=== PATIENT | male | born 1965 | race Caucasian/White ===

== ENCOUNTER 2017-09-07 16:46 | Outpatient (CLI) ==
--- NOTE | 2017-09-08 07:31 | DI ---
EXAM: Two views of the right hip. History: Right hip pain. Findings: No acute fracture or dislocation. No abnormal calcifications or radiopaque foreign bodies . Mild narrowing of the right hip joint with small osteophytes. Impression: 1. No acute osseous abnormality. 2. Mild arthritis of the right hip joint
--- NOTE | 2017-09-08 07:37 | DI ---
EXAM: Five views of the lumbar spine. History: Lower back pain. Findings: No acute fracture or subluxation of the lumbar spine. Mild multilevel degenerative disc sp alan narrowing with a few small anterior osteophytes. Mild facet hypertrophy within the lower lumbar spine. Impression: 1. No acute osseous abnormality. 2. Mild degenerative changes
== END 2017-09-07 16:47 | disposition home or self-care (01) ==
LOC: RAD 16:46
PROVIDERS: ATTEND Nurse Practitioner Family
DX: M54.5 Low back pain (principal); M25.551 Pain in right hip